=== PATIENT | female | born 1990 | race African-American/Black ===

== ENCOUNTER 2017-12-25 19:21 | Emergency (ER) | payer SELFPAY ==
[2017-12-25 21:11] LABS: APPEARANCE,URINE SLIGHTLY-CLOUDY; BILIRUBIN,URINE NEGATIVE (NEGATIVE); COLOR,URINE YELLOW; GLUCOSE, URINE NEGATIVE (NEGATIVE); KETONES,URINE NEGATIVE (NEGATIVE); LEUKOCYTE ESTERASE,URINE MODERATE (NEGATIVE); NITRITE,URINE NEGATIVE (NEGATIVE); PROTEIN,URINE NEGATIVE (NEGATIVE); URINE SPECIFIC GRAVITY 1.013; UROBILINOGEN,URINE NEGATIVE mg/dL (<2.0)
--- NOTE | 2017-12-25 21:22 | ER Document Report ---
ED General - General Chief Complaint: Flank Pain Stated Complaint: FLANK PAIN Time Seen by Provider: 12/25/17 21:11 Mode of Arrival: Ambulatory Information source: Patient Notes: Patient is a otherwise healthy 27-year-old female with chief complaint of left flank pain, urinary urgency and foul-smelling urine. Patient denies any fever, nausea or vomiting. Patient reports history of kidney infections reports that this feels the same. Patient denies history of kidney stones. TRAVEL OUTSIDE OF THE [place] IN LAST 30 DAYS: No - Related Data Allergies/Adverse Reactions: No Known Allergies Allergy (Verified 04/28/16 04:31) Past Medical History - General Information source: Patient - Social History Smoking Status: Never Smoker Chew tobacco use (# tins/day): No Frequency of alcohol use: Occasional Drug Abuse: None Family History: Reviewed & Not Pertinent Patient has suicidal ideation: No Patient has homicidal ideation: No Renal/ Medical History: Reports: Other - Kidney infections. Denies: Hx Peritoneal Dialysis Surgical Hx: Negative - Immunizations Immunizations up to date: Yes Review of Systems - Review of Systems Constitutional: No symptoms reported EENT: No symptoms reported Cardiovascular: No symptoms reported Respiratory: No symptoms reported Gastrointestinal: No symptoms reported Genitourinary: See HPI Female Genitourinary: No symptoms reported Musculoskeletal: No symptoms reported Skin: No symptoms reported Hematologic/Lymphatic: No symptoms reported Neurological/Psychological: No symptoms reported Physical Exam - Vital signs Vitals: Temp Pulse Resp BP Pulse Ox 98.9 F 103 H 16 116/59 L 98 12/25/17 19:24 12/25/17 19:24 12/25/17 19:24 12/25/17 19:24 12/25/17 19:24 - Notes Notes: PHYSICAL EXAMINATION: GENERAL: Well-appearing, well-nourished and in no acute distress. HEAD: Atraumatic, normocephalic. EYES: Pupils equal round and reactive to light, extraocular movements intact, conjunctiva are normal. ENT: Nares patent, oropharynx clear without exudates. Moist mucous membranes. NECK: Normal range of motion, supple without lymphadenopathy LUNGS: Breath sounds clear to auscultation bilaterally and equal. No wheezes rales or rhonchi. HEART: Regular rate and rhythm without murmurs ABDOMEN: Soft, nondistended abdomen. Tenderness to palpation to left lower quadrant. No guarding, no rebound. No masses appreciated. Female : CVA tenderness to left side. Musculoskeletal: Normal range of motion, no pitting or edema. No cyanosis. NEUROLOGICAL: Cranial nerves grossly intact. Normal speech, normal gait. Normal sensory, motor exams PSYCH: Normal mood, normal affect. SKIN: Warm, Dry, normal turgor, no rashes or lesions noted. Course - Re-evaluation Re-evalutation: Otherwise healthy 27-year-old female presenting with chief complaint of left flank pain, dysuria and foul-smelling urine. Does not appear to be in any acute distress. Patient unsure of status so we will hold off on a CT at this time. CBC and comprehensive metabolic panel are unremarkable. HCG urine is positive. Urinalysis with leukocyte esterase, no nitrites. Patient will be sent for a transvaginal ultrasound. Transvaginal ultrasound shows a intrauterine of approximately 15 weeks 4 days. Vital signs are within normal limits and patient denies any pain. Will treat patient for a urinary tract infection. Patient encouraged to follow-up and establish care with [facility] as she reports that she did not know she was . - Vital Signs Vital signs: Temp Pulse Resp BP Pulse Ox 99.4 F 84 16 102/64 95 12/26/17 01:29 12/26/17 01:29 12/26/17 01:29 12/26/17 01:29 12/26/17 01:29 - Laboratory Result Diagrams: 12/25/17 22:05 12/25/17 22:05 Laboratory results interpreted by me: 12/25/17 12/25/17 12/25/17 20:47 20:47 22:05 Hgb 10.5 L Hct 32.4 L MCV 71 L MCH 22.8 L RDW 18.2 H BUN Creatinine Glucose Ur Leukocyte Esterase MODERATE H Urine Ascorbic Acid 20 H Urine HCG, Qual POSITIVE H 12/25/17 22:05 Hgb Hct MCV MCH RDW BUN 6 L Creatinine 0.51 L Glucose 74 L Ur Leukocyte Esterase Urine Ascorbic Acid Urine HCG, Qual Discharge - Discharge Clinical Impression: Qualifiers: Weeks of gestation: 15 weeks Qualified Code(s): Z3A.15 - 15 weeks gestation of Urinary tract infection Qualifiers: Urinary tract infection type: site unspecified Hematuria presence: without hematuria Qualified Code(s): N39.0 - Urinary tract infection, site not specified Condition: Stable Disposition: HOME, SELF-CARE Additional Instructions: You are . care is best started as early in as possible. If you're unsure about continuing this , you should discuss this with your physician or with metalsmith apprentice at [facility]. You should take only medications approved by your physician. Acetaminophen can safely be taken for minor pains. As a rule, medication for chronic conditions such as asthma or seizures can safely be continued. You should discuss with the physician every medicine you take. Any regular exercise program can be continued. Talk to your physician, however, before engaging in competitive or demanding sports. Alcohol, smoking, and "street drugs" are dangerous to your baby. Cocaine is especially dangerous. Don't use any illicit drugs! URINARY TRACT INFECTION: Your evaluation indicates that you have a urinary tract infection. This is due to germs growing in the bladder. This is a common problem. This infection usually responds quickly to antibiotics. Your antibiotic should be taken exactly as prescribed. Drink plenty of fluids -- three to four quarts a day. Occasionally, a bladder anesthetic will be prescribed to help stop the feeling of urgency until the antibiotic has a chance to clear the infection. This may cause your urine to be dark orange. Certain urine infections require a culture. If the doctor obtained a culture, the results will be back in two days. You should call to see if a change in treatment is needed. A repeat urinalysis after you finish treatment is often recommended. The physician will let you know if further testing is required. Call the doctor if you develop fever, chills, flank pain, inability to urinate, or blood in the urine. ANTIBIOTIC THERAPY: You have been given an antibiotic prescription. It's important that you take all the medication, unless instructed otherwise by your physician. Failure to complete the entire course can result in relapse of your condition. Common side effects of antibiotics include nausea, intestinal cramping, or diarrhea. Women may develop vaginal yeast infections, and babies can get yeast (thrush) in the mouth following the use of antibiotics. Contact your physician if you develop significant side effects from this medication. Allergy to this antibiotic can result in hives, wheezing, faintness, or itching. If symptoms of allergy occur, stop the medication and call the doctor. CEPHALEXIN: The antibiotic you've been prescribed is a member of the cephalosporin class. This type of antibiotic covers a wide variety of infections, including those of the skin, lungs, and urinary tract. It's useful for staph infections. This antibiotic is slightly similar to the penicillin family. In rare cases , a person who is allergic to penicillin will also be allergic to this medication. If you have had a severe allergic reaction to penicillin, and have not taken this antibiotic since that time, notify your doctor. Antibiotics which cover many germs ("broad spectrum" antibiotics) are more likely to cause diarrhea or "yeast" infections. Women prone to vaginal yeast problems may suffer an attack after taking this antibiotic. In infants, oral thrush (white spots "stuck" on the cheek) or yeast diaper rash may result. See your doctor if these problems occur. Call at once if you develop itching, hives , shortness of breath, or lightheadedness. FOLLOW-UP CARE: If you have been referred to a physician for follow-up care, call the physician s office for an appointment as you were instructed or within the next two days. If you experience worsening or a significant change in your symptoms, notify the physician immediately or return to the Emergency Department at any time for re-evaluation. Please take antibiotics as prescribed. Take Tylenol for pain. Drink plenty of fluids. Follow up with your [facility]IC[facility] provider in the next 3-5 days for a follow- up. Return to the emergency department if you develop worsening pain. Prescriptions: Cephalexin Monohydrate [Keflex 500 mg Capsule] 500 mg PO Q6H 5 Days #20 capsule Referrals: LOCAL,NO [Primary Care Provider] - Follow up as needed
[2017-12-25 22:15] LABS: ABSOLUTE MONOCYTES (AUTO) 0.6 10^3/uL (0.1-1.4); ABSOLUTE NEUT (AUTO) 5.3 10^3/uL (1.7-8.2); BASOPHILS % (AUTO) 0.1 % (0-2); EOSINOPHILS % (AUTO) 0.5 % (0-6); HEMATOCRIT 32.4 % (36.0-47.0); HEMOGLOBIN 10.5 g/dL (12.0-15.5); LYMPHOCYTES % (AUTO) 25.6 % (13-45); MEAN CORPUSCULAR HEMOGLOBIN 22.8 pg (27.0-33.4); MEAN CORPUSCULAR HGB CONC 32.3 g/dL (32.0-36.0); MEAN CORPUSCULAR VOLUME 71 fl (80-97); MONOCYTES % (AUTO) 7.2 % (3-13); PLATELET COUNT 320 10^3/uL (150-450); RED BLOOD COUNT 4.59 10^6/uL (3.72-5.28); RED CELL DISTRIBUTION WIDTH 18.2 % (11.5-14.0); SEGMENTED NEUTROPHILS % (AUTO) 66.6 % (42-78); TOTAL CELLS COUNTED % (AUTO) 100 %
[2017-12-25 22:41] LABS: ALANINE AMINOTRANSFERASE 21 U/L (9-52); ALBUMIN 4.2 g/dL (3.5-5.0); ALKALINE PHOSPHATASE 44 U/L (38-126); ANION GAP 10 (5-19); ASPARTATE AMINO TRANSFERASE 16 U/L (14-36); BILIRUBIN,DIRECT 0.2 mg/dL (0.0-0.4); BILIRUBIN,TOTAL 0.3 mg/dL (0.2-1.3); BLOOD UREA NITROGEN 6 mg/dL (7-20); CALCIUM 9.5 mg/dL (8.4-10.2); CARBON DIOXIDE 25 mmol/L (22-30); CHLORIDE 103 mmol/L (98-107); GLUCOSE 74 mg/dL (75-110); POTASSIUM 4.4 mmol/L (3.6-5.0); TOTAL PROTEIN 7.4 g/dL (6.3-8.2)
[2017-12-25] MEDS ORDERED: ONDANSETRON 4 MG TAB.RAPDIS PO ONE (22:53)
[2017-12-25] MEDS ORDERED: HYDROCODONE/ACETAMINOPHEN 5-325 MG TABLET PO ONE (22:53)
--- NOTE | 2017-12-26 00:55 | RADIOLOGY REPORT (SQ) ---
EXAM DESCRIPTION: OB sonogram, December 26, 2017 at 12:11 AM. CLINICAL HISTORY: left abd pain with +hcg COMPARISON: None. FINDINGS: Transvaginal images of the pelvis where submitted. Cervix is closed. There is a single intrauterine with crown-rump length measuring approximately 8.9 cm corresponding to 14 weeks and six days. The biparietal diameter measured 3.3 cm corresponding to 16 weeks and two days. The head circumference measured 11.6 cm corresponding to 15 weeks and five days. The abdominal circumference measured 9.1 cm corresponding to 15 weeks and two days. The femur length measured 2 cm corresponding to 15 weeks and six days. Composite gestational age is of 15 weeks and four days. heart motion was calculated at 155 bpm. Placenta is within normal limits. anatomical survey was limited. IMPRESSION: Single live intrauterine of 15 weeks and four days. Recommend follow-up around 20 weeks of gestation for a complete anatomical survey.
[2017-12-26] MEDS ORDERED: CEPHALEXIN 500 MG CAPSULE PO ONE (01:21)
[2017-12-26 01:32] VITALS: BP 102/64
== END 2017-12-26 01:32 | disposition home or self-care (01) ==
LOC: ER 19:21
DX: O23.42 Unspecified infection of urinary tract in pregnancy, second trimester (principal); R10.9 Unspecified abdominal pain; R39.15 Urgency of urination; Z3A.15 15 weeks gestation of pregnancy
CPT/HCPCS: 99284; 36415; 85025; 81025; 80053; 81001; 76805; 93976; S0119